=== PATIENT | female | born 1975 | race Caucasian/White ===

== ENCOUNTER 2018-08-10 13:14 | Emergency (ER) | payer OTHER ==
[~2018-08-10] VITALS: Ht 170.2 cm; Wt 67.1 kg
[2018-08-10] MEDS ORDERED: BENZONATATE 100 MG CAPSULE. PO ONE (14:00)
[2018-08-10] MEDS ORDERED: IPRATRPIUM/ALBUTEROL 0.5/2.5MG 3 ML NEBU. NEB ONE (14:00)
--- NOTE | 2018-08-10 14:13 | RAD ---
2 views chest dated 08/10/2018. No comparison available. Clinical data indication: Cough for 3 to 4 months. FINDINGS: PA and lateral views of the chest were obtained. Heart and mediastinal contours within normal limits. Lungs are clear without focal consolidation. Vascular interstitium within normal limits. No pleural effusion or pneumothorax. IMPRESSION: no acute radiographic abnormality. Electronically signed by: Jerrod Beach MD (08/10/2018 2:10 PM) [facility]
[2018-08-10 14:39] LABS: INFLUENZA A PATIENT POSITIVE (NEGATIVE); INFLUENZA B PATIENT NEGATIVE (NEGATIVE)
[2018-08-10] MEDS ORDERED: OSEL75CA PO (14:59)
[2018-08-10] MEDS ORDERED: HYDR115S2 PO (14:59)
[2018-08-10] MEDS ORDERED: ALBU2.5V8 INH (14:59)
[2018-08-10] MEDS ORDERED: HYDROcodone/APAP 5/325MG 1 TAB TABLET PO ONE (15:00)
[2018-08-10] MEDS ORDERED: OSELTAMIVIR 75 MG CAPSULE PO ONE (15:00)
--- NOTE | 2018-08-10 15:00 | PHYS DOC ---
Past History Past Medical History: Hypertension Past Surgical History: No Surgical History Alcohol Use: None Drug Use: None Adult General Chief Complaint Chief Complaint: COUGH HPI HPI Patient is a 42 year old female who presents with complaining of cough. Patient states she has had chronic dry cough for almost 3 months after she was discharge from 12 years incarceration to jail house that gradually getting worse and she thinks it is because of exposure to smoking. She complaining of increasing cough and myalgia and subjective fever since yesterday with nasal congestion and sore throat and earache. Patient denies vomiting and diarrhea, urinary symptom, . Review of Systems Review of Systems Constitutional: Reports subjective fever Eyes: Denies change in visual acuity, redness, or eye pain [] HENT: Reports nasal congestion and sore throat Respiratory: Reports cough and shortness of breath Cardiovascular: No additional information not addressed in HPI [] GI: Denies abdominal pain, nausea, vomiting, bloody stools or diarrhea [] : Denies dysuria or hematuria [] Musculoskeletal: Denies back pain or joint pain [] Integument: Denies rash or skin lesions [] Neurologic: Denies headache, focal weakness or sensory changes [] Endocrine: Denies polyuria or polydipsia [] All other systems were reviewed and found to be within normal limits, except as documented in this note. Current Medications Current Medications Current Medications Medications (Trade) Dose Ordered Sig/Waylon Start Time Stop Time Status Last Admin Dose Admin Albuterol/ Ipratropium (Duoneb) 3 ml 1X ONCE 08/10/18 14:00 08/10/18 14:04 DC 08/10/18 13:55 3 ML Benzonatate (Tessalon Perle) 200 mg 1X ONCE 08/10/18 14:00 08/10/18 14:04 DC 08/10/18 14:00 200 MG Allergies Allergies Allergies Coded Allergies Type Severity Reaction Last Updated Verified No Known Drug Allergies 08/10/18 No Physical Exam Physical Exam Constitutional: Well developed, well nourished, mild distress, non-toxic appearance. [] HENT: Normocephalic, atraumatic, bilateral external ears normal, oropharynx moist, pharyngeal erythema no oral exudates, nasal congestion. [] Eyes: PERRLA, EOMI, conjunctiva normal, no discharge. [] Neck: Normal range of motion, no tenderness, supple, no stridor. [] Cardiovascular:Heart rate regular rhythm, no murmur [] Lungs & Thorax: Bilateral breath sounds clear to auscultation [] Abdomen: Bowel sounds normal, soft, no tenderness, no masses, no pulsatile masses. [] Skin: Warm, dry, no erythema, no rash. [] Back: No tenderness, no CVA tenderness. [] Extremities: No tenderness, no cyanosis, no clubbing, ROM intact, no edema. [] Neurologic: Alert and oriented X 3, normal motor function, normal sensory function, no focal deficits noted. [] Psychologic: Affect normal, judgement normal, mood normal. [] Current Patient Data Vital Signs Vital Signs Date Time Temp Pulse Resp B/P (MAP) Pulse Ox O2 Delivery O2 Flow Rate FiO2 08/10/18 14:02 98 Room Air 08/10/18 13:20 99.9 104 20 Lab Results Laboratory Tests Test 08/10/18 13:55 Influenza Type A (Rapid) Positive (NEGATIVE) Influenza Type B (Rapid) Negative (NEGATIVE) EKG EKG [] Radiology/Procedures Radiology/[place] [address] IMAGING REPORT Signed PATIENT: REGINO REEVES ACCOUNT: [id number] : 1975 LOCATION: ER AGE: 42 SEX: F EXAM STATUS: REG ER ORD. PHYSICIAN: CELESTINO MERCADO MD REASON: cough PROCEDURE: CHEST PA & LATERAL 2 views chest dated 08/10/2018. No comparison available. Clinical data indication: Cough for 3 to 4 months. FINDINGS: PA and lateral views of the chest were obtained. Heart and mediastinal contours within normal limits. Lungs are clear without focal consolidation. Vascular interstitium within normal limits. No pleural effusion or pneumothorax. IMPRESSION: no acute radiographic abnormality. Electronically signed by: Jerrod Beach MD (08/10/2018 2:10 PM) [facility] DICTATED AND SIGNED BY: JERROD BEACH MD DATE: 08/10/18 1410 CC: CELESTINO MERCADO MD; PCP,NO ~ Course & Med Decision Making Course & Med Decision Making Pertinent Labs and Imaging studies reviewed. (See chart for details) Evaluation of patient in ER showed 42-year-old male patient resident of her [facility] house with complaining of chronic cough for 3 she was advised to follow-up with her primary care physician regarding chronic cough. Months and fever and nasal congestion and myalgia with increasing cough since yesterday. Patient had positive Flu A and unremarkable chest x-ray. Patient felt better with treatment in ER. Dragon Disclaimer Dragon Disclaimer This electronic medical record was generated, in whole or in part, using a voice recognition dictation system. Departure Departure: Impression: Primary Impression: Influenza A Additional Impression: Chronic cough Disposition: HOME, SELF-CARE (at 1500) Condition: IMPROVED Referrals: PCP,NO (PCP) Patient Instructions: Cough, Adult, Influenza A (H1N1) Additional Instructions: Drink plenty of liquids Follow-up with your primary care physician in 3-5 days regarding chronic cough Return to ER if not getting better Take xmid-vds-[id number] ibuprofen and Tylenol as needed for pain and fever Patient had 1 dose of hydrocodone in ER Scripts Hydrocodone/Chlorphen P-Stirex (Tussionex Pennkinetic Susp) 115 Ml Bri.er.12h 5 ML PO BID for cough and congestion, #60 ML Prov: CELESTINO MERCADO MD 08/10/18 Albuterol Sulfate (PROAIR HFA INHALER) 8.5 Gm Hfa.aer.ad 2 PUFF INH PRN Q6HRS PRN for SHORTNESS OF BREATH, #1 INHALER 0 Refills Prov: CELESTINO MERCADO MD 08/10/18 Oseltamivir Phosphate (TAMIFLU) 75 Mg Capsule 1 CAP PO BID for influenza, #10 CAP Prov: CELESTINO MERCADO MD 08/10/18 Problem Qualifiers CELESTINO MERCADO MD Aug 10, 2018 15:00
[2018-08-10 15:29] VITALS: BP 139/75
== END 2018-08-10 15:31 | disposition home or self-care (01) ==
LOC: ER 13:14
DX: J10.1 Influenza due to other identified influenza virus with other respiratory manifestations (principal); R05 Cough; I10 Essential (primary) hypertension
CPT/HCPCS: 71046; 87804; 94640; 99284; J7620